=== PATIENT | male | born 1970 | race Caucasian/White ===

== ENCOUNTER 2019-05-10 07:29 | Emergency (ER) | payer OTHER ==
[2019-05-10] MEDS ORDERED: Lidocaine 1% with EPINEPHrine 1:100,000 10 ML MDV INJECT ONE (07:30)
[2019-05-10] MEDS ORDERED: Ketorolac 30 MG/ML SDV IM ONE (07:53)
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
[2019-05-10] MEDS ORDERED: Diphtheria,Pertussis(Acell),Tetanus Vaccine 0.5 ML SDV IM ONE (09:39)
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
== END 2019-05-10 10:01 | disposition home or self-care (01) ==
LOC: FB.ED 07:29
DX: S01.21XA Laceration without foreign body of nose, initial encounter (principal); S50.812A Abrasion of left forearm, initial encounter; S80.212A Abrasion, left knee, initial encounter; S80.211A Abrasion, right knee, initial encounter; M25.512 Pain in left shoulder; Z23 Encounter for immunization; K21.9 Gastro-esophageal reflux disease without esophagitis; Z79.899 Other long term (current) drug therapy; V00.141A Fall from scooter (nonmotorized), initial encounter
CPT/HCPCS: 12011; 73030; 90471; 90715; 96372; 99283; J1885